=== PATIENT | female | born 1960 | race Caucasian/White ===

== ENCOUNTER 2017-04-14 13:31 | Emergency (ER) | payer OTHER, BC ==
[~2017-04-14] VITALS: Ht 167.6 cm; Wt 90.4 kg
[~2017-04-14 13:31] MED LIST: ALLEGRA ALLERG180 MG PO; BENADRYL25 MG PO; CIPRO500 MG; DILAUDID2 MG PO; MOTRIN400 MG PO; NITROFURANTOIN100 M3 PO; PERCOCET 5/31 TABLET PO; PREDNISONE20 MG PO; PRISTIQ50 MG PO; SINGULAIR10 MG PO; TYLENOL EXTRA500 MG PO; VENTOLIN HFA18 GM IH; XANAX0.25 MG PO; ZANTAC150 MG PO; ZANTAC300 MG PO; ZYRTEC10 M3 PO
[2017-04-14 14:42] LABS: HEMATOCRIT 42.6 % (36.0-46.0); MCHC 33.1 G/DL (30.0-36.0); MCV 93.6 FL (83-99); MEAN PLAT.VOLUME 9.6 uM^3 (9.5-12.4); PLATELET COUNT 270 K/uL (156-360); RBC DIS.WIDTH-CV 12.9 % (11.8-14.6); RBC DIS.WIDTH-SD 44.3 % (39-53); RED BLOOD COUNT 4.55 M/uL (3.80-5.20); WHITE BLOOD COUNT 7.6 K/uL (4.1-10.2)
[2017-04-14 14:55] LABS: CHLORIDE 106 mEq/L (99-109); SODIUM 138 mEq/L (136-147)
[2017-04-14 14:57] LABS: GLUCOSE 94 mg/dL (70-99)
[2017-04-14 14:59] LABS: ANION GAP 9 MEQ/L (2-14)
[2017-04-14 15:01] LABS: GFR ESTIMATE (CALCULATED) > 59 mL/min/
[2017-04-14 15:02] LABS: UREA NITROGEN (BUN) 23 mg/dL (9-23)
[2017-04-14 15:34] LABS: TROP-I INTERPRETATION NEGATIVE; TROPONIN-I < 0.01 ng/mL (0.0-0.30)
[2017-04-14] MEDS ORDERED: PREDNISONE20 MG PO (16:07)
[2017-04-14 16:15] VITALS: BP 117/79
== END 2017-04-14 16:17 | disposition home or self-care (01) ==
LOC: EME 13:31
PROVIDERS: Physician Assistant
DX: J45.901 Unspecified asthma with (acute) exacerbation (principal); K21.9 Gastro-esophageal reflux disease without esophagitis; Z72.0 Tobacco use
CPT/HCPCS: 71020; 80048; 84484; 85027; 93005; 94640; 99281; 99284; J7512

== ENCOUNTER 2017-04-18 09:46 | Observation (INO) | payer OTHER, BC ==
[~2017-04-18] VITALS: Ht 167.6 cm; Wt 97.7 kg
[2017-04-18 11:26] LABS: HEMATOCRIT 41.6 % (36.0-46.0); MCH 30.9 PG (29.0-34.0); MCHC 33.2 G/DL (30.0-36.0); MCV 93.1 FL (83-99); MEAN PLAT.VOLUME 9.1 uM^3 (9.5-12.4); PLATELET COUNT 281 K/uL (156-360); RBC DIS.WIDTH-SD 44.4 % (39-53); RED BLOOD COUNT 4.47 M/uL (3.80-5.20)
[2017-04-18 11:33] LABS: CHLORIDE 105 mEq/L (99-109); POTASSIUM 3.6 mEq/L (3.7-5.4); SODIUM 141 mEq/L (136-147)
[2017-04-18 11:34] LABS: GLUCOSE 92 mg/dL (70-99)
[2017-04-18 11:36] LABS: ANION GAP 12 MEQ/L (2-14)
[2017-04-18 11:38] LABS: GFR ESTIMATE (CALCULATED) > 59 mL/min/
[2017-04-18 11:39] LABS: UREA NITROGEN (BUN) 16 mg/dL (9-23)
[2017-04-18 11:45] LABS: TROP-I INTERPRETATION NEGATIVE; TROPONIN-I < 0.01 ng/mL (0.0-0.30)
[2017-04-18] MEDS ORDERED: MOTRIN IB200 MG PO (18:31)
[2017-04-18] MEDS ORDERED: CLARITIN,ALAVAR10 MG PO (18:31)
[2017-04-18] MEDS ORDERED: XANAX0.5 MG PO ×2 (18:32→18:33)
[2017-04-18] MEDS ORDERED: PREDNISONE20 MG PO (18:35)
[2017-04-18] MEDS ORDERED: FLONASE16 G1 BOTH NARES (18:36)
[2017-04-18] MEDS ORDERED: CYANOCOBALAM1000 MCG PO (18:37)
[2017-04-18 22:10] VITALS: BP 119/72
[2017-04-19 00:20] VITALS: BP 120/75
[2017-04-19 04:07] VITALS: BP 124/64
[2017-04-19 07:11] VITALS: BP 139/63
[2017-04-19 07:43] LABS: HEMATOCRIT 42.6 % (36.0-46.0); MCH 30.9 PG (29.0-34.0); MCHC 33.1 G/DL (30.0-36.0); MCV 93.4 FL (83-99); MEAN PLAT.VOLUME 9.7 uM^3 (9.5-12.4); PLATELET COUNT 313 K/uL (156-360); RBC DIS.WIDTH-CV 13.1 % (11.8-14.6); RBC DIS.WIDTH-SD 44.9 % (39-53); RED BLOOD COUNT 4.56 M/uL (3.80-5.20)
[2017-04-19 08:35] LABS: ANION GAP 13 MEQ/L (2-14); CHLORIDE 104 MEQ/L (99-109); GFR ESTIMATE (CALCULATED) > 59 mL/min/; GLUCOSE 107 mg/dL (70-99); SAMPLE HEMOLYSIS CHECK 0; SAMPLE ICTERIC CHECK 0; SAMPLE LIPEMIA CHECK 0; SODIUM 137 MEQ/L (136-147); UREA NITROGEN (BUN) 15 mg/dL (9-23)
[2017-04-19 08:37] LABS: POTASSIUM 4.6 MEQ/L (3.7-5.4)
[2017-04-19 11:11] VITALS: BP 122/70
[2017-04-19 15:45] VITALS: BP 125/60
[2017-04-19 21:00] VITALS: BP 125/68
[2017-04-20 00:11] VITALS: BP 135/77
[2017-04-20 04:51] VITALS: BP 122/60
[2017-04-20 07:22] VITALS: BP 123/71
[2017-04-20] MEDS ORDERED: BENADRYL25 MG PO (10:50)
== END 2017-04-20 12:15 | disposition home or self-care (01) ==
LOC: EME 09:46 → EDOF 21:10 → 4EAST 21:52
PROVIDERS: Emergency Medicine; Hospitalist
DX: J45.901 Unspecified asthma with (acute) exacerbation (principal); T78.40XA Allergy, unspecified, initial encounter; G25.81 Restless legs syndrome; F41.9 Anxiety disorder, unspecified; G43.909 Migraine, unspecified, not intractable, without status migrainosus; K21.9 Gastro-esophageal reflux disease without esophagitis
CPT/HCPCS: 70491; 71020; 80048; 84484; 85027; 93005; 94640; 94640 76; 94644; 99202; 99281; 99285; G0378; J0171; J1100; J1650; J1956; J2930